=== PATIENT | female | born 1955 | race Caucasian/White ===

== ENCOUNTER 2021-05-21 13:00 | Emergency (ER) | payer OTHER ==
[~2021-05-21] VITALS: Ht 157.5 cm; Wt 77.1 kg
[2021-05-21] MEDS ORDERED: OMEP20ER (13:16)
[2021-05-21] MEDS ORDERED: IRON18 MG (13:16)
[2021-05-21] MEDS ORDERED: B12-FOLIC ACID1 EACH PO (13:16)
[2021-05-21] MEDS ORDERED: ONDA4ODT MM (16:13)
[2021-05-21] MEDS ORDERED: Norco 5-325 Ta1 EACH PO (16:13)
[2021-05-21] MEDS ORDERED: Percocet 5-3251 EACH PO (16:24)
== END 2021-05-21 16:33 | disposition home or self-care (01) ==
LOC: ER 13:00
DX: S52.591A Other fractures of lower end of right radius, initial encounter for closed fracture (principal); Z88.5 Allergy status to narcotic agent; Z79.899 Other long term (current) drug therapy; W01.0XXA Fall on same level from slipping, tripping and stumbling without subsequent striking against object, initial encounter
CPT/HCPCS: 25605; 73110; 99284-25

== ENCOUNTER 2021-05-24 09:22 | Emergency (ER) | payer OTHER ==
[~2021-05-24] VITALS: Ht 157.5 cm; Wt 76.2 kg
[~2021-05-24 09:22] MED LIST: B12-FOLIC ACID1 EACH PO; IRON18 MG; Norco 5-325 Ta1 EACH PO; OMEP20ER; ONDA4ODT MM; Percocet 5-3251 EACH PO
== END 2021-05-24 12:14 | disposition home or self-care (01) ==
LOC: ER 09:22
DX: S52.501D Unspecified fracture of the lower end of right radius, subsequent encounter for closed fracture with routine healing (principal); Z88.5 Allergy status to narcotic agent; Z79.899 Other long term (current) drug therapy
CPT/HCPCS: 99282